=== PATIENT | female | born 2005 | race Caucasian/White ===

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

== ENCOUNTER 2023-07-08 20:40 | Emergency (ER) | payer BC, SELFPAY ==
[2023-07-08 20:40] VITALS: BP 148/91; PULSE 103; RESP 18; TEMP 36.6; O2SAT 100; BMI 44.1
[2023-07-08 21:01] LABS: Bacteria 0 SEEN /hpf (None Seen); Mucous, Urine 0 SEEN /hpf (<or=2+); Red Blood Cells-Urine 0 SEEN /hpf (0-5); Squamous Epithelial Cells - UA 0 SEEN /hpf (5-10); White Blood Cells 0 SEEN /hpf (0-5)
[2023-07-08 21:07] LABS: Absolute Neutrophil Count 7.6 X10^3/uL (2.0-7.7); Basophil# 0.14 X10^3/uL; Basophil% 1.2 % (0-1); Eosinophil# 0.24 X10^3/uL; Hemoglobin 14.7 g/dL (12.0-15.0); Lymphocyte % 25.5 % (19-41); Mean Corp Hgb Conc 33.4 g/dL (32-36); Mean Corpuscular Hgb 30.8 pg (27.0-32.0); Mean Corpuscular Volume 92.2 fL (81-99); Monocyte# 1.07 X10^3/uL; Monocyte% 8.8 % (0-10); NRBC Flagged by Analyzer 0 % (0-5); Neutrophil # 7.59 X10^3/uL (2.7-7.7); Neutrophil % 62.3 % (47-70); Platelet Count 396 K/mm3 (150-450); RBC Distribution Width CV 13.1 % (11.6-14.6); RBC Distribution Width SD 44.4 fl (35.1-43.9); Red Blood Count 4.77 M/mm3 (4.2-5.4); White Blood Count 12.2 K/mm3 (4.4-11.0)
[2023-07-08 21:08] LABS: Color, Urine Yellow (Yellow); Glucose, Dipstick Normal (Normal); Ketone-Dipstick Negative (Negative); Leukocyte Esterase-Dipstick Negative /ul (Negative); Nitrite-Dipstick Negative (Negative); Occult Blood-Urine Negative /ul (Negative); Protein-Dipstick Negative (Negative); Specific Gravity, Urine 1.015 (1.002-1.030); Urine Bilirubin Dipstick Negative (Negative); Urine Clarity Clear (Clear); Urine Urobilinogen Normal (Normal)
[2023-07-08 21:18] LABS: Internal QC Validated? YES +Cl - CLEAR BKGD; Pregnancy, Serum, hCG Quali. NEGATIVE Negative
[2023-07-08 21:27] LABS: ALB/GLOB Ratio 1.2 RATIO (0.9-2.4); AST(SGOT) 15 U/L (15-37); Alanine Aminotransfer ALT/SGPT 25 U/L (13-56); Albumin, Serum 4.1 g/dL (3.2-5.0); Alkaline Phosphatase 122 U/L (45-117); Anion Gap 3 (5-15); BUN 12 mg/dL (7-18); BUN/Creat Ratio 12.2 RATIO (10-20); Calcium,Total 9.2 mg/dL (8.5-10.1); Chloride 107 mmol/L (98-107); Creatinine, Serum 0.98 mg/dL (0.55-1.02); EST Glomerular Filtration Rate 77 mL/min (>60); Est Glom Filt Rate - Afr Amer 93 mL/min (>60); Globulin 3.4 g/dL (2.2-4.2); Glucose 95 mg/dL (74-106); Potassium 3.6 mmol/L (3.5-5.1); Protein, Total 7.5 g/dL (6.4-8.2); Sodium Level 139 mmol/L (136-145)
[2023-07-08 22:40] VITALS: BP 130/72; PULSE 66; RESP 18; O2SAT 99
--- NOTE | 2023-07-08 22:56 | US_ITS ---
INDICATION: LLQ pain, H/O cyst EXAMINATION: Ultrasound US Transvaginal Non-OB TECHNIQUE: Transvaginal (for optimal evaluation of the adnexa) pelvic ultrasound was performed. Grayscale, spectral waveform, and color flow Doppler evaluation of the adnexa. COMPARISON: FINDINGS: UTERUS: Anteverted. The uterus measures 6.8 x 4.0 x 2.8 cm. There is no uterine mass. The endometrial stripe measures 5 mm in AP diameter which is within normal limits. RIGHT OVARY: 2.8 x 2.2 x 1.3 cm. Non-enlarged, normal echogenicity. There is normal arterial inflow and venous outflow present in the right ovary. LEFT OVARY: 2.9 x 2.0 x 1.6 cm. Non-enlarged, normal echogenicity. There is normal arterial inflow and venous outflow present in the left ovary. FREE FLUID: None. US/Transvaginal Non- IMPRESSION: Unremarkable pelvic ultrasound. Electronically Signed: Parminder Feldman DO at 23:29 EDT Reading Location ID and State: [facility] / [place] Tel [phone], Service support ,
--- NOTE | 2023-07-08 22:57 | EX.ED.DYSGE1 ---
HPI History of Present Illness Chief Complaint: Abd Pain Informant: patient Onset/Context/Timing Onset: Today Narrative Narrative: Patient present secondary left lower quadrant pain that started this evening. She states after dinner she gets sharp significant pain in the left lower quadrant. It reminded her of the pain she had when she had an ectopic in November 2022. She did ultimately have her left fallopian tube removed at that time. She had an ovarian cyst on the left that ruptured shortly after her surgery. Patient denies any urinary symptoms. She states pain is improved at this time but not completely resolved. PFSH PFS Medical History Asthma Ruptured ectopic Allergy/AdvReac Type Severity Reaction Status Date / Time amoxicillin AdvReac Hives Verified 07/08/23 20:42 Social History Smoking Status: Never smoker ROS ROS ED Constitutional Constitutional ED: Denies chills or fever(s) Eyes Eyes: Denies discharge from eye(s) ENT ENT ED: Denies discharge from eye(s), rhinorrhea or sore throat Cardiovascular Cardiovascular: Denies chest pain or palpitations Respiratory/Chest Respiratory/Chest: Denies cough or dyspnea Gastrointestinal Gastrointestinal: Reports abdominal pain; Denies nausea or vomiting Genitourinary Genitourinary ED: Denies difficulty urinating, dysuria or urinary frequency Musculoskeletal Musculoskeletal: Denies back pain or extremity pain Integumentary Denies Abrasions or rash Neurologic Neurologic: Denies headache(s) or weakness Psychiatric Psychiatric: Denies anxiety or depression Allergic/Immunologic Allergic/Immunologic ED: Denies lip swelling or urticaria EXAM Physical Exam Const Vital Signs: 07/08/23 20:40 07/08/23 22:40 Temperature 97.8 F Temperature Source Temporal Pulse Rate 103 H 66 Respiratory Rate 18 18 Blood Pressure 148/91 H 130/72 H Blood Pressure Mean 110 91 Pulse Ox 100 99 Oxygen Delivery Method Room Air Room Air Positive well nourished and well developed General Appearance ED: well developed HEENT Reports moist mucous membranes Eyes EOMs intact bilaterally Neck no lymphadenopathy Chest Wall inspection of chest normal and palpation of chest normal Resp normal respiratory effort and clear to auscultation bilaterally Cardio regular rate and regular rhythm GI GI Narrative: Abdomen soft with minimal tenderness in the left lower quadrant. No guarding or rebound. No palpable masses. Extremity normal to inspection Neuro oriented x3 and no sensory deficits noted Motor Exam: strength 5/5 throughout Psych mental status grossly normal Skin no rashes or lesions noted MDM MDM MDM Narrative Medical decision making narrative: Lab work and urinalysis obtained per nursing protocol from triage. White count is elevated at 12.2 with normal differential. Hemoglobin is 14.7. Chemistry studies are unremarkable. LFTs significant only for an alk phos of 122. test is negative. Urinalysis reveals no evidence of infection and no hematuria. Patient does report a history of ovarian cyst. Given the degree of pain she had earlier this evening I will obtain an ultrasound to evaluate for any evidence of recent torsion. History & Record Review Discussion w/independent historian: Patient Lab Data Attestation: I reviewed the patient's lab results. Labs: Laboratory Results - last 24 hr 07/08/23 07/08/23 20:50 20:55 WBC 12.2 H RBC 4.77 Hgb 14.7 Hct 44.0 MCV 92.2 MCH 30.8 MCHC 33.4 RDW Std Deviation 44.4 H RDW Coeff of Kyle 13.1 Plt Count 396 MPV 11.0 Immature Gran % (Auto) 0.200 Neut % (Auto) 62.3 Lymph % (Auto) 25.5 [place] % (Auto) 8.8 Eos % (Auto) 2.0 Baso % (Auto) 1.2 H Absolute Neuts (auto) 7.6 Absolute Lymphs (auto) 3.10 Nucleated RBC % 0 Sodium 139 Potassium 3.6 Chloride 107 Carbon Dioxide 29.0 Anion Gap 3 L BUN 12 Creatinine 0.98 Estim Creat Clear Calc 111.80 Est GFR (MDRD) Af Amer 93 Est GFR (MDRD) Non-Af 77 BUN/Creatinine Ratio 12.2 Glucose 95 Calcium 9.2 Total Bilirubin 0.20 AST 15 ALT 25 Alkaline Phosphatase 122 H Total Protein 7.5 Albumin 4.1 Globulin 3.4 Albumin/Globulin Ratio 1.2 Serum , Qual NEGATIVE Urine Color Yellow Urine Clarity Clear Urine pH 8.0 Ur Specific [place] 1.015 Urine Protein Negative Urine Glucose (UA) Normal Urine Ketones Negative Urine Occult Blood Negative Urine Nitrite Negative Urine Bilirubin Negative Urine Urobilinogen Normal Ur Leukocyte Esterase Negative Urine RBC 0 SEEN Urine WBC 0 SEEN Ur Squamous Epith Cells 0 SEEN Urine Bacteria 0 SEEN Urine Mucus 0 SEEN Radiography Diagnostic Testing: Clinical Impression(s) from Imaging Studies Transvaginal US 07/08/23 22:56 IMPRESSION: Unremarkable pelvic ultrasound. Electronically Signed: Parminder Feldman DO at 23:29 EDT Reading Location ID and State: [facility] / [place] Tel [phone], Service support , Treatment and Re-Evaluation :: Pelvic ultrasound was performed and reveals no acute abnormalities. No evidence of ovarian cyst or free fluid. Test results discussed with the patient. She is reassured with these findings. She will take Tylenol or ibuprofen as needed for pain. Return instructions given. Discharge Plan Triage Chief Complaint: Abd Pain ED Provider: Anai Gil Dx/Rx/DC Orders Clinical Impression: Abdominal pain Instructions: ED Abdominal Pain Unkn Cause Fem Primary Care Provider: Lorenza Fischer NP Referrals: Lorenza Fischer NP, [employer] [Primary Care Provider] - 1 Week if not improving Disposition Disposition: Home, Self Care
[2023-07-08 23:51] VITALS: BP 113/66; PULSE 64; RESP 18; TEMP 36.6; O2SAT 100
== END 2023-07-08 23:52 | disposition home or self-care (01) ==
PROVIDERS: Emergency Provider Emergency Medicine; PCP Nurse Practitioner Family; Visit Provider Emergency Medicine
DX: R10.32 Left lower quadrant pain (principal)
CPT/HCPCS: 76830; 80053; 81001; 84703; 85025; 99284; A4216